=== PATIENT | female | born 1995 | race Caucasian/White ===

== ENCOUNTER 2022-03-20 23:31 | Emergency (ER) | payer BC ==
[~2022-03-20] VITALS: Ht 160 cm; Wt 63.5 kg
[2022-03-21 00:18] LABS: HEMATOCRIT 45.5 % (31.2-41.9); MEAN CORPUSCULAR HEMOGLOBIN 30.6 uug (24.7-32.8); MEAN CORPUSCULAR VOLUME 87.3 fL (75.5-95.3); PLATELET COUNT (AUTO) 323 K/uL (179-408)
[2022-03-21 00:27] LABS: CREATININE 0.9 mg/dL (0.6-1.3); POTASSIUM 3.5 mmol/L (3.5-5.1)
[2022-03-21 00:31] LABS: *URINE HCG, QUAL NEGATIVE (NEGATIVE)
[2022-03-21 00:33] LABS: BILIRUBIN,TOTAL 0.4 mg/dL (0.2-1.0); TOTAL PROTEIN, SERUM 8.4 g/dL (6.4-8.2)
[2022-03-21] MEDS ORDERED: KETOROLAC TROMETHAMINE 15 MG INJ IVP ONE (01:15)
[2022-03-21] MEDS ORDERED: IV NORMAL SALINE 1000 ML BAG IV ONE ×2 (01:15)
[2022-03-21] MEDS ORDERED: KETOROLAC TROMETHAMINE 15 MG INJ ONE (01:17)
--- NOTE | 2022-03-21 02:09 | NUR ---
Patient discharged to home in stable condition. Written and verbal after care instructions given. Patient verbalizes understanding of instructions. Stressed follow up or return to ER for worsening s/s. Patient walked out with steady gait.
[2022-03-21 02:10] VITALS: BP 145/78
== END 2022-03-21 02:12 | disposition home or self-care (01) ==
LOC: ER 23:37
DX: R07.9 Chest pain, unspecified (principal); R03.0 Elevated blood-pressure reading, without diagnosis of hypertension; Z82.49 Family history of ischemic heart disease and other diseases of the circulatory system
CPT/HCPCS: 71045; 36415; 99285; 96374; 96361; 80053; 84703; 85025; 84484; 93005; J1885; J7040 ×2; A4663

== ENCOUNTER 2023-03-11 18:38 | Emergency (ER) | payer BC ==
[~2023-03-11] VITALS: Ht 160 cm; Wt 73.9 kg
[2023-03-11] MEDS ORDERED: DICYCLOMINE HCL 10 MG CAPSULE PO STA (19:25)
[2023-03-11] MEDS ORDERED: ONDANSETRON ODT 4 MG TAB.RAPDIS SL ONE (19:30)
[2023-03-11] MEDS ORDERED: DICYCLOMINE HCL 20 MG TABLET ONE (19:48)
[2023-03-11] MEDS ORDERED: ONDANSETRON HCL 4 MG TABLET ONE (19:48)
[2023-03-11 19:50] LABS: BASOPHILS # (AUTO) 0.1 K/UL (0.0-0.2); BASOPHILS % (AUTO) 0.5 % (0.0-2.0); EOSINOPHILS # (AUTO) 0.3 K/uL (0.0-0.7); EOSINOPHILS % (AUTO) 2.7 % (0.0-7.0); HEMATOCRIT 41.7 % (31.2-41.9); HEMOGLOBIN 14.2 g/dL (10.9-14.3); LYMPHOCYTES # (AUTO) 3.1 K/uL (0.8-4.8); LYMPHOCYTES % (AUTO) 29.1 % (20.5-51.5); MEAN CORPUSCULAR HGB CONC 34 g/dL (32.3-35.6); MEAN CORPUSCULAR VOLUME 85.3 fL (75.5-95.3); MONOCYTES # (AUTO) 0.7 K/uL (0.1-1.30); MONOCYTES % (AUTO) 6.3 % (0.0-11.0); NEUTROPHILS # (AUTO) 6.6 K/uL (1.8-8.9); NEUTROPHILS % (AUTO) 61.4 % (38.5-71.5); PLATELET COUNT (AUTO) 285 K/uL (179-408); RED BLOOD CELL COUNT(AUTO) 4.89 MIL/uL (3.63-4.92); RED CELL DISTRIBUTION WIDTH 15.1 % (12.3-17.7); WHITE BLOOD COUNT (AUTO) 10.8 K/uL (3.8-11.8)
[2023-03-11 20:05] LABS: CALCIUM 8.5 mg/dL (8.5-10.1); CREATININE 0.6 mg/dL (0.6-1.3); POTASSIUM 3.9 mmol/L (3.5-5.1)
[2023-03-11 20:09] LABS: DIFFERENTIAL COMMENT 1
[2023-03-11 20:11] LABS: ALBUMIN 3.6 g/dL (3.4-5.0); BILIRUBIN,TOTAL 0.4 mg/dL (0.2-1.0); TOTAL PROTEIN, SERUM 7.2 g/dL (6.4-8.2)
[2023-03-11] MEDS ORDERED: DICY10CA13 PO (20:43)
[2023-03-11] MEDS ORDERED: ONDA4TAB5 PO (20:43)
[2023-03-11 20:45] LABS: *URINE HCG, QUAL NEGATIVE (NEGATIVE)
[2023-03-11 20:46] LABS: *BILIRUBIN,URIN NEGATIVE (NEGATIVE); *BLOOD, URINE NEGATIVE (NEGATIVE); *CLARITY,URINE CLEAR (CLEAR); *COLOR,URINE YELLOW (YELLOW); *KETONES,URINE NEGATIVE (NEGATIVE); *PROTEIN,URINE NEGATIVE (NEGATIVE); *UROBILINOGEN,URINE 0.2 E.U./dl (NORMAL); LEUKOCYTE ESTERASE ,URINE TRACE (NEGATIVE); NITRITE, URINE NEGATIVE (NEGATIVE); PH,URINE 6.5 (5.0-8.0); UGLUCOSE NEGATIVE (NEGATIVE)
[2023-03-11 20:56] VITALS: BP 128/84; TEMP 98.1; O2SAT 100
[2023-03-11 23:15] LABS: BACTERIA,URINE FEW /HPF (NONE SEEN); RBC,URINE 0-3 /HPF (0-3); SQUAMOUS EPITHELIAL CELL,UR FEW /HPF (NONE SEEN); WBC,URINE 0-3 /HPF (0-3)
== END 2023-03-11 20:57 | disposition home or self-care (01) ==
LOC: ER 18:42
DX: R10.84 Generalized abdominal pain (principal); R10.2 Pelvic and perineal pain; Z79.899 Other long term (current) drug therapy
CPT/HCPCS: 36415; 83605; 83735; 84703; 85025; A4606; A4663; Q0162

== ENCOUNTER 2024-06-14 18:01 | Emergency (ER) | payer BC, MEDICAID ==
[~2024-06-14] VITALS: Ht 162.6 cm; Wt 74.8 kg
[~2024-06-14 18:01] MED LIST: DICY10CA13 PO; ONDA4TAB5 PO
[2024-06-14 18:47] LABS: *BILIRUBIN,URIN NEGATIVE (NEGATIVE); *BLOOD, URINE NEGATIVE (NEGATIVE); *CLARITY,URINE CLEAR (CLEAR); *COLOR,URINE YELLOW (YELLOW); *KETONES,URINE TRACE (NEGATIVE); *PROTEIN,URINE NEGATIVE (NEGATIVE); *UROBILINOGEN,URINE 0.2 E.U./dl (NORMAL); LEUKOCYTE ESTERASE ,URINE TRACE (NEGATIVE); NITRITE, URINE NEGATIVE (NEGATIVE); PH,URINE 5.5 (5.0-8.0); UGLUCOSE NEGATIVE (NEGATIVE)
[2024-06-14 18:57] LABS: *URINE HCG, QUAL NEGATIVE (NEGATIVE)
[2024-06-14 19:15] LABS: RBC,URINE 0-3 /HPF (0-3)
[2024-06-14 19:16] LABS: BACTERIA,URINE FEW /HPF (NONE SEEN); SQUAMOUS EPITHELIAL CELL,UR FEW /HPF (NONE SEEN)
[2024-06-14 19:36] LABS: BASOPHILS # (AUTO) 0.1 K/UL (0.0-0.2); BASOPHILS % (AUTO) 0.7 % (0.0-2.0); EOSINOPHILS # (AUTO) 0.2 K/uL (0.0-0.7); EOSINOPHILS % (AUTO) 3.3 % (0.0-7.0); HEMATOCRIT 37.5 % (31.2-41.9); HEMOGLOBIN 12.7 g/dL (10.9-14.3); LYMPHOCYTES % (AUTO) 40.9 % (20.5-51.5); MEAN CORPUSCULAR HEMOGLOBIN 27.8 uug (24.7-32.8); MEAN CORPUSCULAR HGB CONC 34 g/dL (32.3-35.6); MEAN CORPUSCULAR VOLUME 82.2 fL (75.5-95.3); MONOCYTES # (AUTO) 0.6 K/uL (0.1-1.30); NEUTROPHILS # (AUTO) 3.5 K/uL (1.8-8.9); NEUTROPHILS % (AUTO) 47.1 % (38.5-71.5); PLATELET COUNT (AUTO) 284 K/uL (179-408); RED BLOOD CELL COUNT(AUTO) 4.57 MIL/uL (3.63-4.92); WHITE BLOOD COUNT (AUTO) 7.4 K/uL (3.8-11.8)
[2024-06-14 19:37] LABS: DIFFERENTIAL COMMENT 1
[2024-06-14 19:44] LABS: CALCIUM 9.1 mg/dL (8.5-10.1); CREATININE 0.7 mg/dL (0.6-1.3); POTASSIUM 3.8 mmol/L (3.5-5.1)
[2024-06-14 19:57] LABS: ALBUMIN 3.7 g/dL (3.4-5.0); BILIRUBIN,DIRECT 0.1 mg/dL (0.0-0.2); BILIRUBIN,TOTAL 0.4 mg/dL (0.2-1.0); TOTAL PROTEIN, SERUM 7.2 g/dL (6.4-8.2)
[2024-06-14] MEDS ORDERED: LIDO700A30 TP (20:36)
[2024-06-14 20:46] VITALS: BP 131/82; TEMP 98; O2SAT 98
== END 2024-06-14 20:47 | disposition home or self-care (01) ==
LOC: ER 18:01
DX: R10.9 Unspecified abdominal pain (principal); M79.18 Myalgia, other site; R07.1 Chest pain on breathing
CPT/HCPCS: 71045; 83690; 84703; 85025; A4606; A4663